=== PATIENT | female | born 1950 | race Caucasian/White ===

== ENCOUNTER 2016-07-02 09:46 | Day surgery (SDC) | payer MEDICARE, OTHER ==
[~2016-07-02] VITALS: Ht 172.7 cm; Wt 71.5 kg
[~2016-07-02 09:46] MED LIST: ASPI325T PO; ATOR10TA64 PO; CHOL100055 PO; FLEC50TA2 PO; IBUP200C5 PO; LIDOCAINE 1% (10mg/ml) 2ml SDV INJ ONE; LR 1,000 ML IV SCH; PANT40TA27 PO; SERT100T12 PO
--- OUTSIDE RECORDS SUMMARY | 2016-07-02 09:50 | XMS REPORT | Continuity of Care Document ---
Author Author [facility] Organization [facility] Address Unknown Phone Unavailable Support Name Relationship Address Phone NOEL MCCANN MD Caregiver [address] [place] [address] MIGUEL HARRIS Next Of Kin [address] [address] Insurance Providers Payer Name Policy Number Subscriber Name Relationship Medicare A And B [id number] Lorie Harris 16 Self / Same As Patient [employer] [id number] Lorie Harris Mikaela Self / Same As Patient Chief Complaint and Reason for Visit Chief Complaint Injury Reason for Visit [id number] Problems Medical Problems Problem Onset Date Status Contusion Unknown Active Medications Medication Dose Route Sig Days/Qty Instructions Order Date Discontinued Date Status Sertraline Hcl 50 Mg ORAL DAILY 10/18/14 Active Lubiprostone 8 Mcg ORAL DAILY 10/18/14 Active Cranberry Extract 300 Mg ORAL DAILY 10/18/14 Active Krill Oil 500 Mg ORAL DAILY 10/18/14 Active Social History No social history. Hospital Discharge Instructions No hospital discharge instructions. Plan of Care Discharge Date 10/18/14 1:20pm Disposition 01 HOME OR SELF-CARE Condition at Discharge Stable Instructions/Education Provided Contusions in Adults (ED) Prescriptions See Medications Section Additional Instructions/Education Tylenol, motrin as directed. ED DIONICIO if any worse. Follow up with your doctor if not greatly improved in 3-4 days. Some of your test results may not be complete prior to your leaving the Emergency Department. The Emergency Department is not authorized to give test results over the phone. Please contact the doctor's office listed in this packet of information for your final results. Follow up with your primary care physician or return to the Emergency Department for worsening or worrisome symptoms. * Emergency Department phone number: [phone], x [phone]* MEDICAL RECORD If you need copies of your X-rays, call [phone]. If you need copies of your medical record, including lab results, a signed authorization for release of records will be required. A telephone call for release of Health Information is not allowed. BILLING Billing can sometimes be confusing and frustrating. To help avoid confusion in the future, please take a moment to acquaint yourself with the billing parties for services. [employer] Emergency Room Services [facility] Physician Services [facility] X-rays [facility] Patients will receive bills for services from the appropriate provider. If you have any questions about your [facility] bill, our staff will be happy to assist you. Please call [phone], and ask for the billing department. THANK YOU for choosing [facility] as your emergency care provider! Functional Status No functional status results. Allergies, Adverse Reactions, Alerts Allergen Type Severity Reaction Status Last Updated Sulfa (Sulfonamide Antibiotics) Allergy Mild hives Active 10/18/14 Immunizations No immunization records. Vital Signs Acute Vital Signs Vital Response Date/Time Temperature (Fahrenheit) 97.0 Pulse 66 bpm Respirations 16 Height 5 ft 8 in Weight 158 lb Body Mass Index 24.0 kg/m^2 Results No known relevant diagnostic tests, laboratory data and/or discharge summary. Procedures No known history of procedures. Encounters Encounter Location Date/Time Departed Emergency Room [facility] 10/18/14 12:29pm Recent Diagnosis
--- OUTSIDE RECORDS SUMMARY | 2016-07-02 09:50 | XMS REPORT ---
Author Author Kevin Trujillo Organization [facility] Address [address] [place] [address] Care Team Providers Care Chocolate Refining Roller Name Role Phone Kevin Trujillo Unavailable [phone] PROBLEMS Type Condition ICD9-CM Code VTW46-XO Code Onset Dates Condition Status SNOMED Code Assessment Abnormal Cardiovascular Study 794.30 Feb, Active 078424058 Problem Atrial fibrillation I48.91 Active 58057198 Problem Dyslipidemia 272.4 Active 696530583 Problem Family history of ischemic heart disease V17.3 Active 389397799 Assessment Atrial fibrillation I48.91 Feb, Active 71562347 Problem Palpitations 785.1 Active 08601150 Problem Mitral Valve Prolapse 424.0 Active 802878231 ALLERGIES Substance Reaction Event Type Date Status Arthrotec Unknown Drug Allergy Feb, Active sulfa Unknown Non Drug Allergy Feb, Active SOCIAL HISTORY No smoking Hx information available PLAN OF CARE Activity Details Pending Test AtriaECW 4 Weeks,Reason: VITAL SIGNS Height 68 in 2016-03-10 Weight 158.4 lbs 2016-03-10 BMI 24.08 kg/m2 2016-03-10 Oximetry 99 % 2016-03-10 Heart Rate 60 /min 2016-03-10 Blood pressure systolic 115 mm Hg 2016-03-10 Blood pressure diastolic 62 mm Hg 2016-03-10 MEDICATIONS Medication Instructions Dosage Frequency Start Date End Date Duration Status Metoprolol Tartrate 25 MG Orally Twice a day 1 tablet with food 12h Active Atorvastatin Calcium 10 MG Orally Once a day 1 tablet 24h Active Sertraline HCl 50 MG Orally Once a day 1 tablet 24h Active Ibuprofen 200 MG Orally prn 1 tablet as needed Active Xarelto 20 MG Orally Once a day 1 tablet with food 24h Active Flecainide Acetate 50 MG Orally BID as directed 12h Feb, 90 Active RESULTS No Results PROCEDURES Procedure Date Ordered Related Diagnosis Body Site ELECTROCARDIOGRAM, COMPLETE Mar 10, 2016 Office Visit, New Pt., Level 4 Mar 10, 2016 IMMUNIZATIONS No Known Immunizations
--- OUTSIDE RECORDS SUMMARY | 2016-07-02 09:50 | XMS REPORT ---
Author Author Kevin Trujillo Organization [facility] Address [address] [place] [address] Care Team Providers Care Respiratory Therapy Technician Name Role Phone Kevin Trujillo Unavailable [phone] PROBLEMS Type Condition ICD9-CM Code RLU08-OR Code Onset Dates Condition Status SNOMED Code Assessment Abnormal Cardiovascular Study 794.30 Jun, Active 545237039 Problem Atrial fibrillation I48.91 Active 02688324 Problem Dyslipidemia 272.4 Active 015234880 Problem Family history of ischemic heart disease V17.3 Active 400637396 Assessment Atrial fibrillation I48.91 Jun, Active 84165813 Problem Palpitations 785.1 Active 35917178 Problem Mitral Valve Prolapse 424.0 Active 688162098 ALLERGIES Substance Reaction Event Type Date Status Arthrotec Unknown Drug Allergy Jun, Active sulfa Unknown Non Drug Allergy Jun, Active SOCIAL HISTORY No smoking Hx information available PLAN OF CARE Activity Details Pending Test AtriaECW 6 Months,Reason: VITAL SIGNS Height 68 in 2016-06-18 Weight 158 lbs 2016-06-18 BMI 24.02 kg/m2 2016-06-18 Oximetry 98 % 2016-06-18 Heart Rate 73 /min 2016-06-18 Blood pressure systolic 128 mm Hg 2016-06-18 Blood pressure diastolic 64 mm Hg 2016-06-18 MEDICATIONS Medication Instructions Dosage Frequency Start Date End Date Duration Status Aspirin 325 MG Orally Once a day 1 tablet 24h Active Atorvastatin Calcium 10 MG Orally Once a day 1 tablet 24h Active Sertraline HCl 50 MG Orally Once a day 1 tablet 24h Active Flecainide Acetate 50 MG Orally BID as directed 12h 90 Active Ibuprofen 200 MG Orally prn 1 tablet as needed Active RESULTS No Results PROCEDURES Procedure Date Ordered Related Diagnosis Body Site ELECTROCARDIOGRAM, COMPLETE June 18, 2016 Office Visit, Est Pt., Level 4 June 18, 2016 IMMUNIZATIONS No Known Immunizations
--- OUTSIDE RECORDS SUMMARY | 2016-07-02 09:50 | XMS REPORT | Continuity of Care Document ---
Author Author [facility] Organization [facility] Address Unknown Phone Unavailable Support Name Relationship Address Phone MARKO BATISTA MD Caregiver [address] [place] [address] Unavailable MERARI KAUR MD Caregiver [address] [place] [address] Unavailable DEANA DIETRICH Next Of Kin [address] [place], [place] [id number] Insurance Providers Guarantor Lorie Flynn Address [address] [place] [address] Email DENIED/NO TO PT PORTAL Payer Medicare Policy Number [id number] Subscriber's Name Lorie Flynn Relationship 18 Self Payer [facility] Policy Number [id number] Subscriber's Name Lorie Flynn Relationship 18 Self Group Number [id number] Chief Complaint and Reason for Visit Chief Complaint Palpitations Reason for Visit [id number] Problems Past Problems Medical Problem Onset Date Heart palpitations Unknown Medications Current Home Medications Medication Dose Units Route Directions Days Qty Instructions Start Date Atorvastatin Calcium 10 Mg Tablet 10 Mg Oral Bedtime 02/01/16 Cholecalciferol (Vitamin D3) (Vitamin D) 1,000 Unit Capsule 1,000 Mg Oral Qd 02/01/16 Metoprolol Tartrate 25 Mg Tablet 25 Mg Oral Twice Daily With Meals for Discomfort 30 Tablet Take 1 tab, by mouth, two time a day with meals. Sertraline Hcl (Sertraline) 50 Mg Tablet 0.5 Tab Oral Twice A Day 12/12/14 Past Home Medications Medication Directions Ordered Status Anitiza , Oral Daily 05/17/09 Discontinued Cranberry , Daily 05/17/09 Discontinued Social History Social History Problem Response Recorded Date/Time Onset Date Status Hx Substance Use No 02/01/2016 4:31pm Not Applicable Not Applicable Hx Alcohol Use Y OCC 02/01/2016 4:31pm Not Applicable Not Applicable Query Response Start Date Stop Date Smoking Status Never smoker Hospital Discharge Instructions No hospital discharge instructions. Plan of Care Discharge Date 02/01/16 6:47pm Disposition 01 DISCHARGED HOME, SELF-CARE Condition at Discharge Improved Instructions/Education Provided DI for Palpitations Prescriptions See Medication Section Referrals MARKO BATISTA MD Address: [address] [place] [address] [place] [address] Additional Instructions/Education Follow up with Cardiology for Holter Monitor or other testing. Dr Bean Care Plan and Goals Physician Care Plan Problem:skipped heart beat Goal: Follow up with primary care provider Instructions: Take medications and follow care plan as discussed/written Functional Status No functional status results. Allergies, Adverse Reactions, Alerts Allergen Type Severity Reaction Status Last Updated Sulfa (Sulfonamide Antibiotics) Allergy Unknown RASH Active 05/16/09 Calcium Allergy Unknown Active 12/12/14 Piroxicam Allergy Unknown Active 12/12/14 Immunizations Query Response on File Recorded Date/Time Hx Influenza Vaccination N REFUSED 12/13/14 6:55am Hx Pneumococcal Vaccination N REFUSED 12/13/14 6:55am Hx Influenza Vaccination N REFUSED 12/13/14 6:55am Influenza Vaccine Hx NONE 201502/01/16 4:31pm Vital Signs Acute Vital Signs Vital Response Date/Time Temperature (Fahrenheit) 98.7 deg F (96.8 - 99.1) 02/01/2016 6:47pm Temperature (Calculated Celsius) 37.56996 degrees C (36.0 - 37.3) 02/01/2016 6:47pm Pulse Rate (adult) 72 bpm (60 - 100) 02/01/2016 6:47pm Respiratory Rate 25 breaths/min (10 - 20) 02/01/2016 6:47pm O2 Sat by Pulse Oximetry 97 % (90 - 100) 02/01/2016 6:47pm Blood Pressure 160/77 mm Hg 02/01/2016 6:47pm Height (Feet) 5 feet 02/01/2016 3:21pm Height (Inches) 7.00 inches 02/01/2016 3:21pm Weight (Kilograms) 72.600 kg 02/01/2016 3:21pm Body Mass Index (BMI) 25.0 02/01/2016 3:21pm Results Laboratory Results Test Name Result Units Flags Reference Collection Date/Time Result Date/ Time Comments White Blood Count 8.4 T/MM3 4.5-11.0 02/01/2016 5:18pm 02/01/2016 5: 22pm Red Blood Count 3.89 M/MM3 L 4.00-5.20 02/01/2016 5:18pm 02/01/2016 5: 22pm Hemoglobin 11.7 GM/DL L 12-16 02/01/2016 5:18pm 02/01/2016 5:22pm Hematocrit 35.0 % L 36-46 02/01/2016 5:02/01/2016 5:22pm Mean Corpuscular Volume 90.0 UM3 80-100 02/01/2016 5:18pm 02/01/2016 5: 22pm Mean Corpuscular Hemoglobin 30.1 UUG 26-34 02/01/2016 5:2015 5:22pm Mean Corpuscular Hemoglobin Concent 33.4 GM/DL 31-37 02/01/2016 5:02/01/2016 5:22pm RDW Standard Deviation 39.8 FL 36.9-50.2 02/01/2016 5:02/01/2016 5 :22pm Platelet Count 194 T/MM3 130-400 02/01/2016 5:02/01/2016 5:22pm Mean Platelet Volume 10.4 UM3 9.4-12.4 02/01/2016 5:02/01/2016 5: 22pm Neutrophils (%) (Auto) 67.4 % H 33-66 02/01/2016 5:02/01/2016 5: 22pm Lymphocytes (%) (Auto) 24.9 % 23-45 02/01/2016 5:02/01/2016 5: 22pm Monocytes (%) (Auto) 5.9 % 0-9.0 02/01/2016 5:02/01/2016 5:22pm Eosinophils (%) (Auto) 1.5 % 0-4 02/01/2016 5:02/01/2016 5:22pm Basophils (%) (Auto) 0.2 % 0-2 02/01/2016 5:18pm 02/01/2016 5:22pm Immature Granulocyte % (Auto) 0.1 % 0.0-0.5 02/01/2016 5:2015 5:22pm Absolute Neutrophils (auto) 5.7 T/MM3 1.8-7.7 02/01/2016 5:18pm 2015 5:22pm Absolute Lymphocytes (auto) 2.1 T/MM3 1-4.8 02/01/2016 5:182015 5:22pm Absolute Monocytes (auto) 0.5 T/MM3 0-0.8 02/01/2016 5:1802/01/2016 5:22pm Absolute Eosinophils (auto) 0.1 T/MM3 0-0.5 02/01/2016 5:18pm 2015 5:22pm Absolute Basophils (auto) 0.0 T/MM3 0-0.2 02/01/2016 5:02/01/2016 5:22pm Absolute Immature Granulocyte (auto 0.01 T/MM3 0.00-0.03 02/01/2016 5: 1802/01/2016 5:22pm Icterus Index < 2 0-7 02/01/2016 5:02/01/2016 5:24pm Chemistry Specimen Hemolysis < 15 0-25 02/01/2016 5:02/01/2016 5 :24pm 0-25: Specimen Exhibited No Hemolysis. Turbidity < 20 0-20 02/01/2016 5:02/01/2016 5:24pm Sodium Level 146 MEQ/L H 134-144 02/01/2016 5:18pm 02/01/2016 5:30pm Potassium Level 3.8 MEQ/L 3.6-5 02/01/2016 5:02/01/2016 5:30pm Chloride Level 109 MEQ/L H 98-107 02/01/2016 5:1802/01/2016 5:30pm Carbon Dioxide Level 27 MEQ/L 22-30 02/01/2016 5:18pm 02/01/2016 5: 30pm Anion Gap 10 MEQ/L 5-15 02/01/2016 5:02/01/2016 5:30pm Blood Urea Nitrogen 21.0 MG/DL H 7-17 02/01/2016 5:18pm 02/01/2016 5: 30pm Creatinine 0.8 MG/DL 0.7-1.2 02/01/2016 5:1802/01/2016 5:30pm BUN/Creatinine Ratio 26 RATIO 6-26 02/01/2016 5:18pm 02/01/2016 5:30pm Glomerular Filtration Rate Calc 71 02/01/2016 5:18pm 02/01/2016 5: 30pm Glucose Level 97 MG/DL 65-110 02/01/2016 5:18pm 02/01/2016 5:30pm Calculated Osmolality 284 MOSM/KG H 261-280 02/01/2016 5:18pm 2015 5:30pm Calcium Level 9.6 MG/DL 8.4-10.2 02/01/2016 5:18pm 02/01/2016 5:30pm Troponin I < 0.012 ng/ml 0-0.12 02/01/2016 5:18pm 02/01/2016 5:42pm Troponin values with a difference of 55% increase from orginal troponin value represent a true biological DELTA value. (%increase Calc=Orginal Troponin value, divided by subsequent Troponin value, multiplied by 100) Thyroid Stimulating Hormone (TSH) 2.59 MIU/L 0.47-4.68 02/01/2016 5: 18pm 02/01/2016 6:02pm Procedures No known history of procedures. Encounters Encounter Location Arrival/Admit Date Discharge/Depart Date Attending Provider Departed Emergency Room [facility] 02/01/16 3:21pm 02/01/16 6: 47pm MERARI KAUR MD Recent Diagnosis
--- OUTSIDE RECORDS SUMMARY | 2016-07-02 09:51 | XMS REPORT | Continuity of Care Document ---
Author Author [facility] Address Unknown Phone Unavailable Allergies Active Description Code Type Severity Reaction Onset Reported/Identified Relationship to Patient Clinical Status Yes Sulfa (Sulfonamide Antibiotics) [id number] Drug Allergy Mild hives 10/18/2014 Medications Problems Date Dx Coded Attending Type Code Diagnosis Diagnosed By 10/18/2014 RAMY ROSAS, NOEL Moscoso Ot 924.10 10/18/2014 RAMY ROSAS, NOEL Moscoso Ot 924.11 10/18/2014 RAMY ROSAS, NOEL Moscoso Ot E849.0 10/18/2014 RAMY ROSAS, NOEL Moscoso Ot E885.9 Procedures Results Encounters ACCT No. Visit Date/Time Discharge Status Pt. Type Provider Facility Loc./Unit Complaint [id number] 10/18/2014 12:29:00 2014 13:20:00 DIS Emergency RAMY ROSAS, NOEL Moscoso [facility] ED
[2016-07-02 10:01] VITALS: BP 161/79; PULSE 61; RESP 16; TEMP 98.1; O2SAT 100; Ht 172.7 cm; Wt 71.5 kg
--- NOTE | 2016-07-02 10:14 | ANESPREOP ---
Anesthesia Record Date and Time DATE: 07/02/16 TIME: 10:11 Pre-Op Diagnosis epigastric pain Proposed Surgical Procedure egd NPO since: mn Allergies: Coded Allergies: Sulfa (Sulfonamide Antibiotics) (Verified Allergy, Unknown, RASH, 07/02/16) calcium (Unverified Allergy, Unknown, 07/02/16) piroxicam (Unverified Allergy, Unknown, 07/02/16) Ht/Wt/BMI Height: 5 ' 8.00 " Weight: 71.500 kg BMI: 24.0 kg/m2 Vital Signs Date Time Temp Pulse Resp B/P Pulse Ox O2 Delivery O2 Flow Rate FiO2 07/02/16 10:01 98.1 61 16 161/79 100 Room Air Medications Inpatient Medications Current Medications Medications (Trade) Dose Ordered Sig/Ravi Start Time Stop Time Status Last Admin Dose Admin Lactated Ringer's (Lactated Ringers) 1,000 ml @ 50 mls/hr Q20H 07/02/16 07:00 Aspirin (Aspirin) 325 Mg Tablet, 1 TAB PO DAILY, (Reported) Last Taken: on 06/30/16 Atorvastatin Calcium (Atorvastatin Calcium) 10 Mg Tablet, 10 MG PO HS, (Reported) Last Taken: on 07/01/16 2230 Cholecalciferol (Vitamin D3) (Vitamin D) 1,000 Unit Capsule, 1,000 MG PO QD, (Reported) Last Taken: on 07/02/16 0800 Flecainide Acetate (Flecainide Acetate) 50 Mg Tablet, 1 TAB PO BID, (Reported) Last Taken: on 07/02/16 0800 Ibuprofen (Advil) 200 Mg Capsule, 1 CAP PO Q4- 6HPRN PRN for PAIN, (Reported) Last Taken: on 06/30/16 Pantoprazole Sodium (Pantoprazole Sodium) 40 Mg Tablet.dr, 40 MG PO ACB, (Reported) Take 1 tablet, by mouth, daily before breakfast. Last Taken: on 07/02/16 0800 Sertraline (Sertraline) 100 Mg Tablet, 100 MG PO DAILY, (Reported) Last Taken: on 07/02/16 0800 Currently on Beta Evan: No Medical/Surgical History Anesthesia PMH: Reports: Arthritis (OA ), Cancer (R. BREAST), Cardiac Arrythmia (atrial fib, heart carth zero problem s), Depression, Reflux, Denies: *Diabetes, Anesthesia Reactions (NO AIRWAY ISSUES, N&V), Clotting Problems, Glaucoma, Malignant Hyperthermia, Sleep Apnea, Thyroid Disease Substance Use Type: does not use Alcohol Intake: none HX of Last Menstrual Period: COMPLETE HYST. Past Surgical History Orthopedic Surgeries: Abdominal Surgeries: Yes - APPY Genitourinary Surgeries: Yes - CYSTOSCOPY?? BLADDER PROCEDURE Cardiac Surgeries: Yes - HEART CATH. Endocrine Surgeries: Reproductive Surgeries: Yes - R. MASTECTOMY, BREAST BIOPSY Neurological Surgeries: Ear Surgeries: Nose Surgeries: Throat Surgeries: Other Surgeries: Yes - COLONOSCOPY, RAMA. CAT Anesthesia Adverse Reactions: FOUND nausea and vomiting Family Hx of Anesthesia Advers: none Hx of Motion Sickness: No Pertinent Findings EKG Rhythm: Sinus Rhythm Physical Exam Respiratory: Bilat breath sounds equal, Lungs clear Cardiovascular: FOUND Regular rate, rhythm, FOUND No murmur Airway Assessment Mallampati Score: I TMD: 2 Fingerbreadths Neck Extension: Good Overall Assessment: No Airway Concerns ASA: 2 Plan Anesthesia Plan: TIVA Discussion Discussed risks/options/alternatives of anesthesia and questions answered. Patient consents. Nursing pain assessment noted. Attestation Statement Prior to the delivery of any anesthetic medication, I examined the patient, developed the plan, obtained the patient's consent and discussed the risk and benefits of the procedure with the patient/guardian. TREVON AGUILERA CRNA Jul 02, 2016 10:14
[2016-07-02 10:41] VITALS: BP 159/78
[2016-07-02] MEDS ORDERED: LIDOCAINE 2% (20mg/ml) 5ml PF SDV ONE (11:02)
[2016-07-02] MEDS ORDERED: PROPOFOL 200mg 20 ML IV ONE (11:02)
[2016-07-02 11:29] VITALS: BP 131/60; PULSE 66; RESP 12; TEMP 97.7; O2SAT 95
[2016-07-02 11:44] VITALS: BP 143/66; PULSE 64; RESP 16; O2SAT 97
[2016-07-02 12:00] VITALS: BP 154/76; PULSE 60; RESP 14; O2SAT 99
--- NOTE | 2016-07-03 08:23 | OPNOTEF ---
DATE OF PROCEDURE: 07/02/2016 SURGEON: Fredo Diaz MD PREOPERATIVE DIAGNOSIS Epigastric pain. POSTOPERATIVE DIAGNOSIS Epigastric pain, mild duodenitis, gastritis, antral ulceration, mild distal esophagitis. PROCEDURE: Esophagogastroduodenoscopy with biopsies. ANESTHESIA: IV sedation and local. BRIEF HISTORY/INDICATIONS Lorie is a 66-year-old female patient of mine who is having epigastric pain. She had a big right upper quadrant/gallbladder workup three years ago that was negative. After further discussion with her about her pain, it seems like it is more gastric. Decision was made to proceed with an EGD to check out her anatomy and look for a possible peptic ulcer. For completeness, please refer to office notes. FINDINGS Upon EGD the patient was found to have some mild inflammation within her duodenum. The scope was withdrawn back into the antrum which was extremely inflamed. She had slight ulcerations around her pylorus as well as, again, severe gastritis. Scope was retroflexed. She was found to have a small hiatal hernia. The patient was also found to have some mild gastritis in the body and cardia. DESCRIPTION OF PROCEDURE After informed consent was obtained, the patient was brought to the operative suite and placed on the table in the left lateral decubitus position. Patient was then given Versed and Demerol intravenously in a titrated fashion to provide adequate sedation. Patient's oral hypopharynx was also anesthetized with Cetacaine [place] as well as viscous Lidocaine. Next, an Olympus gastroscope was inserted into the oral hypopharynx and subsequently the esophagus under direct visualization. The scope was then advanced through the esophagus, stomach, pylorus, duodenal bulb, into the second portion of the duodenum. The duodenum was mildly inflamed. The scope was slowly withdrawn. First and second portions of the duodenum were mildly inflamed. The scope was withdrawn back into the prepyloric region. This area was extremely inflamed. There was some slight ulceration around the pylorus. There was also heavy gastritis in the region. Biopsies were taken for ALVAREZ as well as for pathology. J-maneuver was then performed. Cardia and fundus were also slightly inflamed. There was a small hiatal hernia as well. The distal esophagus was slightly inflamed and biopsies were taken of this area as well. There was no evidence of Fry's metaplasia. There was no evidence of stricture formation. Additionally, there was no evidence for ulcerations. Scope was then continued to be slowly withdrawn and the remaining esophagus was found to be within normal limits. Patient tolerated the procedure without difficulty and was sent back to the recovery room in stable condition. We will get Daisy with her pathology. Will likely need a repeat an EGD in 3-6 months to document improvement of her ulceration. [facility]
== END 2016-07-02 12:18 | disposition home or self-care (01) ==
LOC: NSC 09:46
PROVIDERS: ATTEND Family Medicine
DX: K25.7 Chronic gastric ulcer without hemorrhage or perforation (principal); K29.80 Duodenitis without bleeding; K29.60 Other gastritis without bleeding; K21.0 Gastro-esophageal reflux disease with esophagitis; D72.1 Eosinophilia; K44.9 Diaphragmatic hernia without obstruction or gangrene; E78.5 Hyperlipidemia, unspecified; F32.9 Major depressive disorder, single episode, unspecified; Z79.82 Long term (current) use of aspirin; Z79.899 Other long term (current) drug therapy
CPT/HCPCS: 43239; 87081; J2704; J7120; 88305; 88342